=== PATIENT | female | born 1965 | race Caucasian/White ===

== ENCOUNTER → 2017-03-22 | Outpatient (CLI) | payer OTHER ==
--- NOTE | 2017-03-23 13:02 | XCELERA REPORT ---
[address] [address] Lower Extremity Arterial Evaluation Name: ENRIKE HALLMAN Age: 51 yrs Gender: Female : 1965 Patient Status: Outpatient Patient Location: Study Date: 03/22/2017 12:57 PM Procedure: A color flow and duplex scan of the lower extremity arteries was performed bilaterally with velocity and waveform anaylsis. 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 Biphasic in the Dorsalis Pedis . 0-19% stenosis at the Dorsalis Pedis artery. Ankle Brachial index is 1.1. Left Side Arterial Evaluation Normal velocity and triphasic waveforms noted from the Common Femoral artery to the Posterior Tibial artery . Biphasic in the Anterior Tibial artery.. 0-19% stenosis at the Anterior Tibial artery. Ankle Brachial index is 1.1. Interpretation Summary Mild hemodynamically significant lesions in the bilateral lower extremities, on duplex imaging, at rest. : [place], NO > Chace [id number]
== END ==
LOC: SP 12:48
DX: R09.89 Other specified symptoms and signs involving the circulatory and respiratory systems (principal)
CPT/HCPCS: 93925